=== PATIENT | male | born 1985 | race Caucasian/White ===

== ENCOUNTER 2019-06-30 22:28 | Emergency (ER) | payer BC, SELFPAY ==
--- NOTE | 2019-06-30 22:41 | ED.GENADULT ---
HPI - General Adult General Chief complaint: Wound/Laceration Stated complaint: hand lac Time Seen by Provider: 06/30/19 22:39 Source: patient Mode of arrival: ambulatory Limitations: no limitations History of Present Illness HPI narrative: Patient is 34 y/o male complaining of laceration to the web space between left index finger and middle finger. This occurred less 1 hour ago. He states that he was cutting oysters at a friends place and cut himself with a knife accidentally. He has mild pain. He is able to move all finger. He is not sure about the date of his last tetanus shot. Related Data Home Medications Medication Instructions Recorded Confirmed No Home Medications 06/30/19 Allergies Allergy/AdvReac Type Severity Reaction Status Date / Time No Known Allergies Allergy Mild Verified 06/30/19 22:48 Review of Systems Review of Systems: All systems reviewed & are unremarkable except as noted in HPI and below Constitutional: Constitutional: Denies chills and Denies fever(s) Respiratory: Respiratory: Denies chest congestion and Denies cough Integumentary/Breasts: Skin/Breast: Reports as per HPI and Reports wounds (laceration to left hand as per HPI) Exam Const: General: cooperative and healthy appearing HENMT: Head: normal to inspection and normocephalic Ears: external ears normal General nose exam: Normal external nose present Eyes: General: appearance normal, both eyes and all related structures Sclera: sclerae normal Neck: Neck: normal visual inspection Chest: Chest palpation & inspection: normal inspection of the chest and normal palpation of entire chest wall Resp: Effort & Inspection: normal respiratory effort and able to speak in complete sentences Skin: Trauma: laceration (1 cm laceration between left index finger and middle finger) Extrem: Other: able to move all left fingers without difficulty Course Vital Signs Vital signs: Vital Signs Temperature 36.6 C 06/30/19 22:44 Pulse Rate 61 06/30/19 22:44 Respiratory Rate 14 06/30/19 22:44 Blood Pressure 136/99 H 06/30/19 22:44 Pulse Oximetry 99 06/30/19 22:44 Temperature 36.6 C 06/30/19 22:44 Pulse Rate 63 06/30/19 23:26 Respiratory Rate 14 06/30/19 23:26 Blood Pressure 128/93 H 06/30/19 23:26 Pulse Oximetry 98 06/30/19 23:26 Procedures Laceration Laceration 1: Date: 06/30/19 Time: 23:01 Site: hand (left hand) Size (cm): 1 Description: linear Depth: simple, single layer Local Anesthetic: lidocaine 1% Amount of anesthesia used (mL): 5 ====== Skin Level ====== Skin layer closed with: nylon Size (cm): 5-0 Number of sutures: 2 Technique: simple, interrupted ====== Subcutaneous Layer ====== ====== Muscle Layer ====== ====== Tendon Layer ====== Medical Decision Making Vital Signs Vital Signs: Vital Signs Temperature 36.6 C 06/30/19 22:44 Pulse Rate 61 06/30/19 22:44 Respiratory Rate 14 06/30/19 22:44 Blood Pressure 136/99 H 06/30/19 22:44 Pulse Oximetry 99 06/30/19 22:44 Temperature 36.6 C 06/30/19 22:44 Pulse Rate 63 06/30/19 23:26 Respiratory Rate 14 06/30/19 23:26 Blood Pressure 128/93 H 06/30/19 23:26 Pulse Oximetry 98 06/30/19 23:26 Discharge Plan Discharge Clinical Impression: Laceration of hand, left Patient Disposition: Home, Self-Care Condition: Stable Instructions: Laceration (ED) Prescriptions: No Action No Home Medications RF: 0 Follow-up/Referrals: Ruddy,Marquez Weinstein MD [Primary Care Provider] - 2 Weeks (for suture removal) Discharge Date/Time: 06/30/19 23:28
[2019-06-30 22:44] VITALS: BP 136/99; PULSE 61; RESP 14; TEMP 36.6; O2SAT 99
[2019-06-30] MEDS: TETANUS,DIPHTHERIA,AC PERTUSSIS ADULT (0.5 ML) BOOSTRIX IM (22:54)
[2019-06-30 23:26] VITALS: BP 128/93; PULSE 63; RESP 14; O2SAT 98
== END 2019-06-30 23:28 | disposition home or self-care (01) ==
PROVIDERS: Emergency Provider Emergency Medicine; PCP Internal Medicine
DX: S61.412A Laceration without foreign body of left hand, initial encounter (principal); W26.0XXA Contact with knife, initial encounter; Y93.G1 Activity, food preparation and clean up; Z23 Encounter for immunization
CPT/HCPCS: 12001; 90471; 90715; 99282

== ENCOUNTER 2022-10-03 14:26 | Outpatient (RCR) | payer BC, SELFPAY ==
[2022-10-03 15:14] VITALS: BMI 17.7
[2022-10-03 15:16] VITALS: BMI 17.7
== END 2022-12-18 13:28 | disposition home or self-care (01) ==
LOC: ANHDMC 14:26
PROVIDERS: PCP Family Medicine; Visit Provider Internal Medicine
DX: Z68.1 Body mass index [BMI] 19.9 or less, adult (principal); Z71.3 Dietary counseling and surveillance
CPT/HCPCS: 97802

== ENCOUNTER 2022-10-10 13:34 | Outpatient (CLI) | payer BC, SELFPAY ==
--- NOTE | ~2022-10-10 | MR_ITS ---
EXAMINATION: MR brain/brain stem wo/w con DATE: 10/10/2022 14:45 INDICATION: PARESTHESIA OF SKIN TECHNIQUE: Magnetic resonance imaging (MRI) of the brain and brainstem was performed without and with 11 cc MultiHance intravenous contrast. Sequences included sagittal and axial T1-weighted SE, axial d iffusion-weighted FS EPI ASSET, axial T2*-weighted GRE, axial T2-weighted FLAIR Propeller, and axial T2-weighted Propeller. Postcontrast axial and coronal T1-weighted SE was obtained. Apparent diffusion coefficient (ADC) maps were created. COMPARISON: None. FINDINGS: No abnormal restricted diffusion to suggest acute ischemic infarct. No MRI evidence of hemorrhage or extra-axial collection. No suspicious foci of susceptibility to suggest prior intraparenchymal hemorr neo. Normal white matter signal. No evidence of advanced or lobar predominant parenchymal volume los s. The basilar cisterns are patent. Flow voids are preserved. Paranasal sinuses are within normal [place] its. Globes and orbital contents are within normal limits. IMPRESSION: Normal MR brain findings. Reviewed, dictated and finalized at location K. IMPRESSION: Normal MR brain findings.
== END 2022-10-10 13:35 | disposition home or self-care (01) ==
PROVIDERS: PCP Internal Medicine; Visit Provider Internal Medicine
DX: R20.2 Paresthesia of skin (principal)
CPT/HCPCS: 70553; A9577

== ENCOUNTER 2023-10-16 12:55 | Outpatient (CLI) | payer BC, SELFPAY ==
--- NOTE | ~2023-10-16 | MR_ITS ---
EXAMINATION: MR brain/brain stem wo con DATE: 10/16/2023 13:32 INDICATION: Headache. TECHNIQUE: Magnetic resonance imaging (MRI) of the brain and brainstem was performed without intraven ous contrast. COMPARISON: Brain MRI 10/10/2022 FINDINGS: There is no intracranial hemorrhage, acute infarction, or abnormal intracranial mass lesion . The ventricles are normal in size. The paranasal sinuses are clear. The orbits are normal. The mast oid air cells are normal. IMPRESSION: 1. Normal brain. Reviewed, dictated and finalized at location A. IMPRESSION: 1. Normal brain.
== END 2023-10-16 12:56 ==
PROVIDERS: PCP Hospitalist; Visit Provider Internal Medicine Rheumatology
DX: R51.9 Headache, unspecified (principal)
CPT/HCPCS: 70551